=== PATIENT | female | born 1970 | race Caucasian/White ===

== ENCOUNTER 2017-07-31 09:14 | Emergency (ER) | payer BC ==
[~2017-07-31] VITALS: Ht 157.5 cm; Wt 108.9 kg
[2017-07-31] MEDS ORDERED: ONDANSETRON HCL INJ 2 MG/ML VIAL IV STA (11:44)
[2017-07-31] MEDS ORDERED: SODIUM CHLORIDE 0.9% 1000ML 1,000 ML IV STA ×2 (11:44)
[2017-07-31] MEDS ORDERED: MORPHINE SULFATE 2 MG/ML SYR IV STA (11:44)
[2017-07-31] MEDS ORDERED: HYDROCODONE/APAP 7.5MG-325MG 1 EA TAB PO ONE (12:15)
[2017-07-31 12:40] LABS: PREGNANCY TEST, URINE NEGATIVE (NEGATIVE)
[2017-07-31 12:42] LABS: BILIRUBIN,URINE NEGATIVE (NEGATIVE); CLARITY,URINE CLOUDY (CLEAR); COLOR,URINE YELLOW (YELLOW); KETONES,URINE NEGATIVE (NEGATIVE); LEUKOCYTE ESTERASE ,URINE NEGATIVE (NEGATIVE); NITRITE,URINE NEGATIVE (NEGATIVE); PROTEIN,URINE DIPSTICK NEGATIVE (NEGATIVE); URINE UROBILINOGEN 0.2 mg/dL (0.2 - 1)
[2017-07-31 12:59] LABS: BASOPHILS # (AUTO) 0.1 (0.0-0.1); BASOPHILS % 0.5 % (0.0-1.0); EOSINOPHILS # (AUTO) 0.2 (0.0-0.4); EOSINOPHILS % 1.4 % (0.0-6.0); HEMATOCRIT 36.3 % (34.2-44.1); HEMOGLOBIN 11.2 g/dL (12.0-16.0); LYMPHOCYTES # (AUTO) 3.5 (1.0-3.2); LYMPHOCYTES % 31.6 % (18.0-39.1); MEAN CORPUSCULAR HEMOGLOBIN 24.5 pg (28-32); MEAN CORPUSCULAR HGB CONC 30.9 g/dL (31-35); MEAN CORPUSCULAR VOLUME 79.4 fL (81-99); MONOCYTES # (AUTO) 0.6 (0.2-0.8); MONOCYTES % 5.6 % (4.4-11.3); NEUTROPHILS # (AUTO) 6.7 (2.1-6.9); NEUTROPHILS % 60.4 % (38.7-80.0); PLATELET COUNT 494 x10e3/uL (140-360); RED BLOOD COUNT 4.57 x10e6/uL (3.6-5.1); RED CELL DISTRIBUTION WIDTH 15.4 % (11.7-14.4)
[2017-07-31 13:05] LABS: BACTERIA,URINE RARE /HPF; EPITHELIAL CELLS,URINE MODERATE /LPF; RBC,URINE 0-5 /HPF (0-5); WBC,URINE (MAN) 0-5 /HPF (0-5)
[2017-07-31 13:13] LABS: ALANINE AMINOTRANSFERASE 16 IU/L (0-55); ALBUMIN 4.1 g/dL (3.5-5.0); ALKALINE PHOSPHATASE 106 IU/L (40-150); ANION GAP 14.6 mmol/L (8-16); BLOOD UREA NITROGEN 7 mg/dL (7-26); BUN/CREATININE RATIO 10 (6-25); CALCIUM 9.8 mg/dL (8.4-10.2); CARBON DIOXIDE 26 mmol/L (22-29); CHLORIDE 101 mmol/L (98-107); EST GLOMERULAR FILTRATION RATE > 60 ML/MIN (60-); GLUCOSE 93 mg/dL (74-118); POTASSIUM 3.6 mmol/L (3.5-5.1); SODIUM 138 mmol/L (136-145)
[2017-07-31 15:06] VITALS: BP 118/57
[2017-07-31 15:28] LABS: PROTHROMBIN TIME 11.4 seconds (11.9-14.5)
[2017-08-07] MEDS ORDERED: DIOVAN HCT 80-1 EACH PO (14:50)
[2017-08-07] MEDS ORDERED: BYSTOLIC10 MG PO (14:50)
[2017-08-07] MEDS ORDERED: IRON PO (14:51)
[2017-08-07] MEDS ORDERED: XANAX XR1 MG PO (14:51)
[2017-08-07] MEDS ORDERED: AMBIEN PO (14:51)
[2017-08-07] MEDS ORDERED: IBUPROFEN400 MG PO (14:51)
[2017-08-07] MEDS ORDERED: PHENERGAN PO (14:52)
[2017-08-09] MEDS ORDERED: IBUPROFEN400 MG PO (20:28)
[2017-08-09] MEDS ORDERED: ULTRAM 50MG50 MG PO (20:28)
[2017-08-09] MEDS ORDERED: SIMETHICONE80 MG PO (20:31)
== END 2017-07-31 15:10 | disposition home or self-care (01) ==
LOC: ER 09:14
DX: R10.2 Pelvic and perineal pain (principal); R10.31 Right lower quadrant pain; N92.1 Excessive and frequent menstruation with irregular cycle
CPT/HCPCS: 36415; 80053; 81001; 81025; 85025; 85610; 85730; 86850; 86900; 99284

== ENCOUNTER 2017-08-08 11:39 | Observation (INO) | payer BC ==
[2017-08-07 15:13] LABS: BASOPHILS # (AUTO) 0.1 (0.0-0.1); BASOPHILS % 0.6 % (0.0-1.0); EOSINOPHILS # (AUTO) 0.1 (0.0-0.4); EOSINOPHILS % 1.3 % (0.0-6.0); HEMATOCRIT 30.7 % (34.2-44.1); HEMOGLOBIN 9.6 g/dL (12.0-16.0); LYMPHOCYTES # (AUTO) 2.6 (1.0-3.2); LYMPHOCYTES % 31.2 % (18.0-39.1); MEAN CORPUSCULAR HEMOGLOBIN 24.9 pg (28-32); MEAN CORPUSCULAR HGB CONC 31.3 g/dL (31-35); MEAN CORPUSCULAR VOLUME 79.7 fL (81-99); MONOCYTES # (AUTO) 0.5 (0.2-0.8); MONOCYTES % 5.6 % (4.4-11.3); NEUTROPHILS # (AUTO) 5.1 (2.1-6.9); NEUTROPHILS % 60.9 % (38.7-80.0); PLATELET COUNT 344 x10e3/uL (140-360); RED BLOOD COUNT 3.85 x10e6/uL (3.6-5.1); RED CELL DISTRIBUTION WIDTH 15.9 % (11.7-14.4)
[2017-08-07 15:15] LABS: BILIRUBIN,URINE NEGATIVE (NEGATIVE); CLARITY,URINE CLEAR (CLEAR); COLOR,URINE YELLOW (YELLOW); KETONES,URINE NEGATIVE (NEGATIVE); LEUKOCYTE ESTERASE ,URINE NEGATIVE (NEGATIVE); NITRITE,URINE NEGATIVE (NEGATIVE); PROTEIN,URINE DIPSTICK NEGATIVE (NEGATIVE); URINE UROBILINOGEN 0.2 mg/dL (0.2 - 1)
[2017-08-07 15:28] LABS: ALANINE AMINOTRANSFERASE 15 IU/L (0-55); ALBUMIN 3.5 g/dL (3.5-5.0); ALBUMIN/GLOBULIN RATIO 0.9 (0.8-2.0); ALKALINE PHOSPHATASE 77 IU/L (40-150); ANION GAP 12.2 mmol/L (8-16); BLOOD UREA NITROGEN 11 mg/dL (7-26); BUN/CREATININE RATIO 15 (6-25); CALCIUM 8.5 mg/dL (8.4-10.2); CARBON DIOXIDE 26 mmol/L (22-29); CHLORIDE 106 mmol/L (98-107); CREATININE, SERUM 0.75 mg/dL (0.57-1.11); EST GLOMERULAR FILTRATION RATE > 60 ML/MIN (60-); GLUCOSE 121 mg/dL (74-118); POTASSIUM 3.2 mmol/L (3.5-5.1); SODIUM 141 mmol/L (136-145)
[~2017-08-08] VITALS: Ht 162.6 cm; Wt 107.1 kg
[~2017-08-08 11:39] MED LIST: AMBIEN PO; BYSTOLIC10 MG PO; DIOVAN HCT 80-1 EACH PO; IBUPROFEN400 MG PO; IRON PO; PHENERGAN PO; XANAX XR1 MG PO
[2017-08-08] MEDS ORDERED: CEFAZOLIN SOD 2 GM/D5W 50ML 50 ML IV ONE (12:49)
[2017-08-08] MEDS ORDERED: MIDAZOLAM HCL 2 MG/2 ML VIAL ONE ×2 (12:50→19:03)
[2017-08-08] MEDS ORDERED: FENTANYL CITRATE/PF 100MCG/2 ML INJ ONE (14:04)
[2017-08-08] MEDS ORDERED: BUPIVACAINE 0.25%/EPI 30ML SDV INJ ONE (14:04)
[2017-08-08] MEDS ORDERED: ACETAMINOPHEN 1000 MG/100 ML IV ONE (14:28)
[2017-08-08] MEDS ORDERED: KETOROLAC TROMETHAMINE 30 MG/ML VIAL ONE (14:28)
[2017-08-08] MEDS ORDERED: SEVOFLURANE INHAL SOLN 250 ML PEN BTL ONE (14:28)
[2017-08-08] MEDS ORDERED: ONDANSETRON HCL INJ 2 MG/ML VIAL ONE (14:28)
[2017-08-08] MEDS ORDERED: ROCURONIUM BROMIDE 10 MG/ML 5ML VIAL ONE (14:28)
[2017-08-08] MEDS ORDERED: PROPOFOL IV EMULSION 10 MG/ML 20 ML VIAL ONE (14:28)
[2017-08-08] MEDS ORDERED: DEXAMETHASONE SOD PHOS INJ 4 MG/ML VIAL ONE (14:28)
[2017-08-08] MEDS ORDERED: LIDOCAINE HCL 2% LOCAL INJ 5 ML SDV VIAL INJ ONE (14:28)
[2017-08-08] MEDS ORDERED: ESTROGENS CONJUGATED VAGINAL CR 45 GM TUBE PV ONE (14:54)
[2017-08-08] MEDS ORDERED: VASOPRESSIN INJ 20 UNIT/ML VIAL ONE (14:54)
[2017-08-08] MEDS ORDERED: ACETAMINOPHEN 325 MG TAB PO PRN (17:45)
[2017-08-08] MEDS ORDERED: BISACODYL 10 MG SUPP PR PRN (17:45)
[2017-08-08] MEDS ORDERED: DIPHENHYDRAMINE HCL 25 MG CAP PO PRN (17:45)
[2017-08-08] MEDS ORDERED: DOCUSATE SODIUM 100 MG CAP PO PRN (17:45)
[2017-08-08] MEDS ORDERED: ONDANSETRON HCL INJ 2 MG/ML VIAL IV PRN (17:45)
[2017-08-08] MEDS ORDERED: ZOLPIDEM TARTRATE 5 MG TAB PO PRN (17:45)
[2017-08-08] MEDS ORDERED: ALPRAZOLAM 1 MG PO SCH (17:45)
[2017-08-08] MEDS ORDERED: HYDROMORPHONE 1MG/1ML INJ ONE (17:53)
[2017-08-08] MEDS ORDERED: MEPERIDINE HCL INJ 50 MG/ML INJ ONE (17:55)
[2017-08-08] MEDS ORDERED: HYDROMORPHONE 2MG/ML INJ ONE (17:59)
[2017-08-08] MEDS: KETOROLAC TROMETHAMINE 30 MG/ML VIAL IV SCH (18:00)
[2017-08-08 18:47] VITALS: BP 124/58
[2017-08-08] MEDS ORDERED: MORPHINE SULFATE INJ 10 MG/ML ONE (19:03)
--- NOTE | 2017-08-08 20:30 | Operative Report ---
DATE OF PROCEDURE: August 08, 2017 PREOPERATIVE DIAGNOSES 1. Abnormal uterine bleeding. 2. Anemia. 3. Pelvic pain. 4. A 6 cm left ovarian cyst. 5. Family history of ovarian cancer. POSTOPERATIVE DIAGNOSES 1. Abnormal uterine bleeding. 2. Anemia. 3. Pelvic pain. 4. Family history of ovarian cancer. 6. A 6 cm left tubal cyst and no left ovarian cyst. TITLE OF PROCEDURE: 1. Laparoscopically-assisted vaginal hysterectomy. 2. Bilateral salpingo-oophorectomy. MECHANICAL APPLICATIONS ENGINEER: Dr. Parker Martinez. ANESTHESIA: General with Dr. Willis. INDICATIONS: The patient is a 47-year-old 2, para 2 with abnormal uterine bleeding and anemia, hemoglobin 9.7, had been as low as 6 when she was transfused a couple of units of packed red cells. She was found to have a persistent 6-cm left ovarian cyst. She presents with abdominal pain and heavy bleeding. The ovarian cyst is not resolved and it has actually gotten larger. It was 5 cm and now it is 6. In view of family history of ovarian cancer, she would like her ovaries removed. Endometrial biopsy revealed benign proliferative endometrium, but in view of her abnormal bleeding, anemia and history of ovarian cancer plus a 6-cm persistent left ovarian mass, the decision was made to proceed with laparoscopically-assisted vaginal hysterectomy and bilateral salpingo-oophorectomy. She was, therefore, taken to the operating room where at that time the findings of surgery were normal uterus, tubes, status post tubal ligation, left tube with a 6-cm paratubal cyst. Let ovary within normal limits. The right ovary had a small cyst. PROCEDURE: The patient was taken to the operating room and placed on the table in the supine position, and general anesthesia was administered and the patient was placed in the lithotomy position. The perineum was prepared and draped in the usual sterile manner as was the abdomen. Pelvic exam revealed a normal sized anteverted uterus with a 6-cm left adnexal mass. Godoy catheter was placed in the bladder for constant drainage. A weighted speculum was placed in the posterior vaginal wall, and then with the aide of a right-angled retractor the anterior lip of the cervix was grasped with a single toothed tenaculum. The Camacho cannula was inserted into the endocervical canal for manipulation, and was proceeded with laparoscopy. The decorating machine operator changed gloves. A small incision was made just inferior to the umbilicus in the midline. The Veress needle was inserted through the incision into the peritoneal cavity. A pneumoperitoneum was created by insufflation of 4 liters of carbon dioxide gas under a filling pressure of 8-10 mmHg. The Veress needle was removed and the trocar was inserted through the incision into the peritoneal cavity. The laparoscope was placed with confirmation that the peritoneal cavity had been entered. Three other 5-mm port sites were placed in the right and left lower quadrant as well as suprapubically for manipulation and we proceeded with a laparoscopy. The findings were normal uterus, status post tubal ligation of the tubes, except for the left tube had a 6-cm paratubal cyst. The left ovary was within normal limits. The right ovary did have a small cyst. It was very difficult to get exposure. Dr. Parker Martinez was called to help obtain exposure with the bowel. He did this and once we did, we were able to take the infundibulopelvic ligament on both sides, clamping, firing with a LigaSure and then advancing down the infundibulopelvic ligament and the mesosalpinx freeing up the tube and ovary on each side. Following this, we were able to clamp the round ligament on each side and used the LigaSure for coagulation, then cut, and freed up the uterus and then a bladder flap was created on the anterior surface using the LigaSure instrument, clamping, coagulating and cutting, and then the broad ligament was brought down to just above the uterine vessels, clamping, cutting after coagulating with the LigaSure. At this point, we proceeded with the vaginal portion of the procedure. The patient was placed in high lithotomy. The cervix was grasped with 2 single-tooth tenacula and Pitressin was injected into the cervix and then the cervix was circumscribed with the knife and then the endopelvic fascia was advanced anteriorly, posteriorly and then laterally. Then, the peritoneum was opened posteriorly under direct visualization and the uterosacral ligaments on each side were clamped, cut and tied off with 0 Vicryl suture and tagged for later identification. Then, the cardinal ligament on each side was clamped, cut and tied off with 0 Vicryl suture, and then the endopelvic fascia was advanced anteriorly and we were able to enter the peritoneal cavity, and then clamping from anterior to posterior peritoneum the uterine vessels were clamped, cut and tied off with 0 Vicryl suture. There was good hemostasis in evidence of the uterine vessels. Then up the broad ligament we clamped, cut and tied off with 0 Vicryl suture. Then the uterus was free along with the right tube and ovary. These were brought out and we had to separate the uterus from the left adnexa and once the uterus was given to be sent to pathology the ovarian mass was grasped with Carmella's and brought out. It was a 6-cm left paratubal cyst. It was sent to pathology for definitive diagnosis. There was good hemostasis in evidence at all the pedicles. We irrigated and suctioned and we proceeded to close. The free needle was used to tie the uterosacral ligaments to the vaginal cuff for support, and then the vaginal cuff was closed with a running lock stitch of 1-0 chromic suture. At this point, the decorating machine operator changed gown and gloves. The pneumoperitoneum was re-insufflated and we visualized and found no evidence of any bleeding from any of the pedicles. We irrigated and suctioned multiple times. The fluid was clear. At this point, all the fluid was removed, and then all the air and instruments were removed from the abdomen, and the procedure was deemed terminated. The skin incisions were closed with inverted stitches of 4-0 Monocryl suture, thus completing the procedure. There were no complications noted. Estimated blood loss was 200 mL. The patient tolerated the procedure well and was transferred from the operating room to the recovery room in stable condition. Job#: [id number]
[2017-08-08] MEDS ORDERED: CEFAZOLIN SOD 1 GM VIAL ONE (20:42)
[2017-08-08] MEDS ORDERED: AMBIEN PO SCH (21:00)
[2017-08-08] MEDS: NEBIVOLOL 10 MG TAB PO SCH (21:07)
[2017-08-08] MEDS: MORPHINE SULFATE INJ 10 MG/ML IM PRN (21:08)
[2017-08-08] MEDS: CEFAZOLIN SOD 2 GM in DEXTROSE 5% 50ML 50 ML IV SCH (21:08)
[2017-08-08] MEDS: PROMETHAZINE HCL 25 MG TAB PO PRN (21:11)
[2017-08-08] MEDS ORDERED: CEFAZOLIN SOD 1 GM/NS 50ML 50 ML IV SCH (22:00)
[2017-08-09] MEDS: D5.45%NS/KCL 20MEQ 1,000 ML IV SCH ×4 (00:15→13:35)
[2017-08-09 00:32] VITALS: BP 131/60
[2017-08-09] MEDS: KETOROLAC TROMETHAMINE 30 MG/ML VIAL IV SCH ×5 (00:53→18:31)
[2017-08-09] MEDS: MORPHINE SULFATE INJ 10 MG/ML IM PRN (04:45)
[2017-08-09 04:56] VITALS: BP 102/54
[2017-08-09] MEDS: CEFAZOLIN SOD 2 GM in DEXTROSE 5% 50ML 50 ML IV SCH ×2 (05:21→14:49)
[2017-08-09 07:12] LABS: BASOPHILS % 0.2 % (0.0-1.0); EOSINOPHILS % 0.1 % (0.0-6.0); HEMATOCRIT 28.4 % (34.2-44.1); HEMOGLOBIN 8.6 g/dL (12.0-16.0); LYMPHOCYTES # (AUTO) 1.7 (1.0-3.2); LYMPHOCYTES % 16.1 % (18.0-39.1); MEAN CORPUSCULAR HEMOGLOBIN 24.6 pg (28-32); MEAN CORPUSCULAR HGB CONC 30.3 g/dL (31-35); MEAN CORPUSCULAR VOLUME 81.4 fL (81-99); MONOCYTES # (AUTO) 0.6 (0.2-0.8); MONOCYTES % 5.3 % (4.4-11.3); NEUTROPHILS # (AUTO) 8.3 (2.1-6.9); NEUTROPHILS % 77.8 % (38.7-80.0); PLATELET COUNT 331 x10e3/uL (140-360); RED BLOOD COUNT 3.49 x10e6/uL (3.6-5.1); RED CELL DISTRIBUTION WIDTH 15.9 % (11.7-14.4)
[2017-08-09 07:42] VITALS: BP 112/62
[2017-08-09 07:56] LABS: ANION GAP 11.9 mmol/L (8-16); BLOOD UREA NITROGEN 9 mg/dL (7-26); BUN/CREATININE RATIO 14 (6-25); CALCIUM 8.3 mg/dL (8.4-10.2); CARBON DIOXIDE 22 mmol/L (22-29); CHLORIDE 108 mmol/L (98-107); CREATININE, SERUM 0.66 mg/dL (0.57-1.11); EST GLOMERULAR FILTRATION RATE > 60 ML/MIN (60-); GLUCOSE 129 mg/dL (74-118); POTASSIUM 3.9 mmol/L (3.5-5.1); SODIUM 138 mmol/L (136-145)
[2017-08-09] MEDS: MORPHINE SULFATE 5 MG/ML VIAL IV PRN ×2 (08:55→15:20)
[2017-08-09] MEDS: PROMETHAZINE HCL 25 MG TAB PO PRN (08:55)
[2017-08-09 11:33] VITALS: BP 104/53
[2017-08-09] MEDS: TRAMADOL HCL 50 MG TAB PO PRN ×2 (14:00→20:24)
[2017-08-09 15:36] VITALS: BP 106/51
[2017-08-09] MEDS: SIMETHICONE 80 MG CHEW PO PRN ×2 (18:12→20:36)
[2017-08-09 20:00] VITALS: BP 116/58
[2017-08-09] MEDS ORDERED: IBUPROFEN400 MG PO (20:28)
[2017-08-09] MEDS ORDERED: ULTRAM 50MG50 MG PO (20:28)
[2017-08-09] MEDS ORDERED: SIMETHICONE80 MG PO (20:31)
[2017-08-09] MEDS: NEBIVOLOL 10 MG TAB PO SCH (20:36)
== END 2017-08-09 21:12 | disposition home or self-care (01) ==
LOC: OR 11:39 → IMCU 18:15
PROVIDERS: ADMIT Obstetrics & Gynecology; ATTEND Obstetrics & Gynecology
DX: N80.0 Endometriosis of uterus (principal); N93.9 Abnormal uterine and vaginal bleeding, unspecified; D64.9 Anemia, unspecified; Z80.41 Family history of malignant neoplasm of ovary; N83.8 Other noninflammatory disorders of ovary, fallopian tube and broad ligament; N72 Inflammatory disease of cervix uteri; D27.1 Benign neoplasm of left ovary
CPT/HCPCS: 36415 ×3; 58262; 80048; 80053; 81003; 82948; 83036; 84702; 85025 ×2; 86850; 86900; 88307; 93005; G0378 ×2; J0690; J1100; J1170 ×2; J1885 ×2; J2001; J2175; J2250; J2270 ×3; J2405

== ENCOUNTER 2021-08-27 10:16 | Emergency (ER) | payer BC, OTHER ==
[~2021-08-27] VITALS: Ht 162.6 cm; Wt 107.0 kg
[~2021-08-27 10:16] MED LIST changes: +SIMETHICONE80 MG PO; +ULTRAM 50MG50 MG PO
[2021-08-27] MEDS ORDERED: KETOROLAC TROMETHAMINE 60 MG/2 ML VIAL IM ONE (11:00)
[2021-08-27] MEDS ORDERED: HYDROCODONE/APAP 7.5MG-325MG 1 EA TAB PO PRN (12:00)
[2021-08-27 13:16] VITALS: BP 132/76
== END 2021-08-27 13:18 | disposition home or self-care (01) ==
LOC: ER 10:21
DX: S83.92XA Sprain of unspecified site of left knee, initial encounter (principal); W01.0XXA Fall on same level from slipping, tripping and stumbling without subsequent striking against object, initial encounter; Y93.02 Activity, running; Y92.9 Unspecified place or not applicable
CPT/HCPCS: 73502; 73560; 73590; 73610; 99283; J1885